=== PATIENT | female | born 1965 | race Caucasian/White ===

== ENCOUNTER 2017-06-09 11:13 | Emergency (ER) | payer OTHER ==
[~2017-06-09] VITALS: Ht 154.9 cm; Wt 72.6 kg
[2017-06-09 14:58] VITALS: BP 129/71
== END 2017-06-09 14:58 | disposition home or self-care (01) ==
LOC: ED 11:13
DX: S39.012A Strain of muscle, fascia and tendon of lower back, initial encounter (principal); X58.XXXA Exposure to other specified factors, initial encounter; Y93.89 Activity, other specified; Y99.8 Other external cause status; Y92.89 Other specified places as the place of occurrence of the external cause
CPT/HCPCS: J1885; J3010; Q0162